=== PATIENT | female | born 1995 | race Hispanic/Latino ===

== ENCOUNTER 2017-04-21 11:38 | Emergency (ER) | payer BC, OTHER ==
[2017-04-21 12:14] VITALS: BMI 26.4
[2017-04-21 12:49] LABS: RBC URINE 2 /hpf (0-3); URINE BACTERIA RARE (<OCC); URINE BILIRUBIN NEGATIVE (NEGATIVE); URINE BLOOD NEGATIVE (NEGATIVE); URINE COLOR STRAW (YELLOW); URINE GLUCOSE (UA) 50 mg/dL (Normal); URINE KETONE NEGATIVE (NEGATIVE); URINE LEUKOCYTE ESTERASE NEG Leu/uL (Negative); URINE PROTEIN NEGATIVE (NEGATIVE); URINE UROBILINOGEN 0.2-1.0 mg/dL (0.2-1.0); WBC URINE < 1 /hpf (0-5)
--- NOTE | 2017-04-21 13:43 | OBHP ---
Datetime: 04/21/2017 13:21 IP Adm Impression: , intrauterine IP Admit Plan: Observation/Evaluation; Discharge home Admit Comment, IP Provider: 21yo g1 edc 08/12 presents with c/o pink colored blood noted when she voi ded. She denies ctxs, srom, or decreased fm. pmhx: denies pshx: lithotripsy for kidney stones; Y_A allergy: sulfs medic: pnv shx: denies etoh o: u/a neg I: 23.6wk P: urine c_s f/u in office in 1wk hydraton reinforced. I: 23.6wk Pelvic Type - PN: Adequate Extremities - PN: Normal Abdomen - PN: Normal Breast - PN: Normal Lungs - PN: Normal Heart - PN: Normal Neurologic - PN: Normal HEENT - PN: Normal General - PN: Normal FHR - Baseline A Provider: 140 Comments, ACOG Physical Exam: SSE: no blood in vault; whitish d/c EGA AdmitDate IP: 23.6 Vital Signs Provider: Reviewed; Within Normal Limits IP Chief Complaint: Vaginal bleeding NICHD Variability Prov Fetus A: Moderate 6-25bpm NICHD Accel Fetus A IP Provider: 15X15 FHR Category Provider Fetus A: Category I NICHD Decel Fetus A IP Provider: None Dilatation, Provider: 0 Effacement, Provider: 0 Station, Provider: -4 Genitourinary Exam: Normal
== END 2017-04-21 13:43 | disposition home or self-care (01) ==
LOC: H.EROB2 11:38
DX: O47.02 False labor before 37 completed weeks of gestation, second trimester (principal); Z3A.23 23 weeks gestation of pregnancy; O26.92 Pregnancy related conditions, unspecified, second trimester; Z87.442 Personal history of urinary calculi

== ENCOUNTER 2017-07-27 14:26 | Inpatient (IN) | payer OTHER ==
[2017-07-27 15:28] VITALS: BMI 28.3
[2017-07-27 17:31] LABS: BASO % 0.2 % (0.0-2.0); EOS # 0.1 K/uL (0.0-0.7); EOS % 0.6 % (0.0-4.0); HEMATOCRIT 39.2 % (34.0-47.0); LYMPH # 1.8 K/uL (1.0-4.3); LYMPH % 13.5 % (20.0-40.0); MEAN CELL VOLUME 95.9 fl (81.0-99.0); MEAN CORPUSCULAR HEMOGLOBIN 31.5 pg (27.0-31.0); MEAN CORPUSCULAR HGB CONC 32.9 g/dL (33.0-37.0); MEAN PLATELET VOLUME 7.2 fl (7.2-11.7); MONO # 0.9 K/uL (0.0-0.8); MONO % 6.9 % (0.0-10.0); NEUT # 10.5 K/uL (1.8-7.0); NEUT % 78.8 % (50.0-75.0); NRBC % 0.1 % (0.0-0.0); RED CELL DISTRIBUTION WIDTH 13.2 % (11.5-14.5); WHITE BLOOD COUNT 13.3 K/uL (4.8-10.8)
--- NOTE | 2017-07-27 17:31 | OBADHP ---
Datetime: 07/27/2017 17:15 IP Chief Complaint Other: oligo Pelvic Type - PN: Adequate Extremities - PN: Normal Membranes, Provider: Intact Pool Provider: Negative Nitrazine Provider: Negative IP Chief Complaint: Other Dilatation, Provider: 0 Effacement, Provider: 0 Station, Provider: -3 IP Adm Impression: Term, intrauterine IP Admit Plan: Admit to unit; Initiate labor induction protocol Datetime: 07/27/2017 16:15 Admit Comment, IP Provider: Obh addendum: Patient seen and examined by me. Agree with above assessment and plan. Clarification of above david ent did take Adderall and first and second trimester of and has been followed by MFM. Impression: Induction for oligohydramnios No evidence of PROM. Plan: Admitted for induction. Patient discussed with Dr. Justin and Dr. Larsen. Induction process and plan discussed with patient indications for induction also discussed with drea dallas. She agrees with the planned procedure. CC: oligohydrominos 22 yo g1 at 37.5 edc 10/6 by first trim US presents from US office due to MONICA 5.3 and eval of susp ected SROM. She denies ctxs, VB or decreased fm. States some scant LOF x 2 days. + FM, no ctx, no VB reported. 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 Saldaña labs: B pos antibody screen negative, HIV, gc/chla/hep B negative, rubella immune, rpr NR US: MONICA 5.3, cephalic presentation, BPP 8/8 today, placenta anterior pmhx: denies pshx: lithotripsy for kidney stones; tonsillectomy allergy: sulfa drugs meds: pnv shx: denies etoh O: see exam, VSS O: cervix closed, no SROM A/P 22 yo g1 at 37.5 edc 10/6; oligohydrominos ( MONICA 5) - nitrazine negative - US: MONICA 5.3, cephalic presentation, BPP 8/8 today, placenta anterior - MFM contacted by Dr Bernard recommend IOL - admit to unit - cont monitor - IOL protocol: cervidil - d/w Dr. Joana Guallpa MD Abdomen - PN: Normal Back - PN: Normal Breast - PN: Not Done Lungs - PN: Normal Heart - PN: Normal Thyroid - PN: Normal Neurologic - PN: Normal HEENT - PN: Not Done General - PN: Normal Presentation-Admit: Vertex FHR - Baseline A Provider: 150 Comments, ACOG Physical Exam: cervix: closed, thick, scant white discharge, no pooling in vaginal va ult, nitrazine negative no pooling with and w/out valalva gbs neg Gestation - Est Wks by US: 37.5 Vital Signs Provider: Reviewed NICHD Variability Prov Fetus A: Moderate 6-25bpm NICHD Accel Fetus A IP Provider: 15X15 FHR Category Provider Fetus A: Category I NICHD Decel Fetus A IP Provider: None Genitourinary Exam: Normal DTRs - PN: Not Done Datetime: 04/21/2017 13:21 EGA AdmitDate IP: 23.6
[2017-07-27] MEDS ORDERED: Penicillin G Potassium 5 MU in Sodium Chloride 0.9% 50 ML IVPB ONE (17:35)
[2017-07-27 20:41] VITALS: O2SAT 99
[2017-07-27] MEDS ORDERED: Nalbuphine 20 mg/ml Inj (1 ml) IVP PRN (22:00)
[2017-07-27] MEDS: Lactated Ringer's 1,000 ML IV SCH (22:20)
[2017-07-28] MEDS: Lactated Ringer's 1,000 ML IV SCH (12:45)
--- NOTE | 2017-07-29 10:28 | OBPN ---
Datetime: 07/29/2017 10:21 IP Progress Impression Other: Oligohydramnios IP Procedures: Sterile Vag Exam IP Progress Plan: Cervical Ripening Membranes, Provider: Intact FHR - Baseline A Provider: 120 IP Progress Note Comment: 22 yo G1 at 37+5 wks for induction for oligohydramnios s/p cervidil, oral miso 50 x [address] cervidil #2 GBS positive, FHT reassuring NICHD Accel Fetus A IP Provider: 15X15 FHR Category Provider Fetus A: Category I NICHD Variability Prov Fetus A: Moderate 6-25bpm Dilatation, Provider: 0 Effacement, Provider: 0 Station, Provider: -3 NICHD Decel Fetus A IP Provider: None Datetime: 07/27/2017 17:15 Pool Provider: Negative Nitrazine Provider: Negative Datetime: 07/27/2017 16:15 Gestation - Est Wks by US: 37.5 Presentation-Admit: Vertex Vital Signs Provider: Reviewed
[2017-07-30] MEDS ORDERED: Oxytocin 30 units/LR 500ML 30 U/500 ML BAG IV ONE ×2 (00:04→10:49)
--- NOTE | 2017-07-30 00:05 | OBPN ---
Datetime: 07/29/2017 23:55 IP Progress Impression Other: Oligohydramnios IP Procedures: Sterile Vag Exam IP Progress Plan: Cervical Ripening Membranes, Provider: Intact FHR - Baseline A Provider: 120 IP Progress Note Comment: 22 yo G1 at 37+5 wks for induction for oligohydramnios s/p cervidil #1, or al miso x 5, cervidil #2 Will start low dose pitocin over night and will proceed w/ a section in the am if she is still not yet in labor Plan discussed w/ pt and her GBS positive, FHT reassuring Vital Signs Provider: Reviewed NICHD Accel Fetus A IP Provider: 15X15 FHR Category Provider Fetus A: Category I NICHD Variability Prov Fetus A: Moderate 6-25bpm Dilatation, Provider: 0 Effacement, Provider: 0 Station, Provider: -3 NICHD Decel Fetus A IP Provider: None
[2017-07-30] MEDS: Lactated Ringer's 1,000 ML IV SCH ×6 (00:06→21:09)
[2017-07-30] MEDS ORDERED: Nalbuphine 20 mg/ml Inj (1 ml) IVP PRN (00:22)
[2017-07-30] MEDS ORDERED: Nalbuphine 20 mg/ml Inj (1 ml) ONE (00:27)
[2017-07-30] MEDS ORDERED: ceFAZolin 1 GM in Sodium Chloride 0.9% 100 ML IVPB ONE (08:15)
--- NOTE | 2017-07-30 08:26 | OBPN ---
Datetime: 07/30/2017 08:21 IP Progress Impression Other: Failed induction IP Informed Consent Obtain: Section Delivery; Risks, Benefits and Alternatives Discussed IP Progress Plan: Deliver- Section Membranes, Provider: Intact FHR - Baseline A Provider: 140 IP Progress Note Comment: 22 yo G1 at 37+6 wks w/ failed induction of labor for oligohydramnios Pt decided against the pitocin last night and is ready to proceed w/ a section Consents signed. All questions answered. NICHD Accel Fetus A IP Provider: 15X15 FHR Category Provider Fetus A: Category I NICHD Variability Prov Fetus A: Moderate 6-25bpm NICHD Decel Fetus A IP Provider: None
[2017-07-30] MEDS ORDERED: ePHEDrine 50 mg/ml Inj ONE (09:50)
[2017-07-30] MEDS ORDERED: Phenylephrine 10 mg/ml Inj ONE (09:50)
[2017-07-30] MEDS ORDERED: Morphine 5 mg/10 ml preservative-free Inj(Duramorph) ONE (09:59)
[2017-07-30] MEDS ORDERED: Midazolam 2 MG/2 ML VIAL ONE (10:50)
[2017-07-30] MEDS ORDERED: Oxytocin 10 Units/ml Inj ONE (11:09)
--- NOTE | 2017-07-30 12:18 | OBDS ---
DELIVERY PERSONNEL Delivery Doctor: Salome Stanford MD Scrub Nurse: Mandie Barreto OBT Superintendent Terminal: Manasa Diggs RN/ Monica Salas RN Anesthesiologist: Issa Heck MD Resident: Dr. Daly PGY1 MATERNAL INFORMATION Delivery Anesthesia: Spinal Medications in Delivery: ivpb ancef 1 gram Provider Comments: Pre-op dx: 22 yo G1 at at 37+6 wks with failed induction of labor for oligohydram nios Post-op dx: Same Procedure: Primary low transverse section Surgeon: Hien Body Bumper: Dr. Bernard, the hospitalist Anesthesia: Spinal Anesthesiologist: Dr. Heck Findings: Viable female infant delivered through clear fluid at 10:49am, Apgars 9 and 9. Wt 7#1.8 , 3245 gms. Small fibroids noted on uterus, nl appearing tubes and ovaries. Complications: None EBL: 700 mL LABOR SUMMARY EDC: 08/14/2017 00:00 No. Babies in Womb: 1 Attempted: No LABOR INFORMATION Cervical Ripening Agents: Cervidil (Annotations: Cervidil removed by Dr. Stanford. ) Oxytocin: N/A Group B Beta Strep: Positive (Annotations: Call received from DR Piotr MD clarified GBS results are p ositive and to be faxed to LD ) Steroids Given: None (Annotations: Data stored by N on behalf of user) MEMBRANES Rupture of Membranes: 07/30/2017 10:49 Length of Rupture (hrs): 0.00 STAGES OF LABOR Stage 3 hrs: 0 Stage 3 min: 1 BABY A INFORMATION Delivery Date/Time: 07/30/2017 10:49 Method of Delivery: Born in Route : Yes : N/A SHOULDER DYSTOCIA BABY A Delivery Date/Time: 07/30/2017 10:49 PRESENTATION/POSITION BABY A Presentation: Cephalic Cephalic Presentation: Vertex Breech Presentation: N/A PLACENTA INFORMATION BABY A Placenta Delivery Time : 07/30/2017 10:50 Placenta Method of Delivery: Manual Removal Placenta Status: Delivered SCORES BABY A Heart Rate 1 min: >100 bpm Resp Effort 1 min: Good Cry Reflex Irritability 1 min: Cough or Sneeze or Pulls Away Muscle Tone 1 min: Active Motion Color 1 min: Body Kenvil, Extremities Blue SCORE 1 MIN: 9 Heart Rate 5 min: >100 bpm Resp Effort 5 min: Good Cry Reflex Irritability 5 min: Cough or Sneeze or Pulls Away Muscle Tone 5 min: Active Motion Color 5 min: Body Kenvil, Extremities Blue SCORE 5 MIN: 9 Heart Rate 10 min: >100 bpm Resp Effort 10 min: Good Cry Reflex Irritability 10 min: Cough or Sneeze or Pulls Away Muscle Tone 10 min: Active Motion Color 10 min: Completely Kenvil SCORE 10 MIN: 10 INFORMATION BABY A Gestational Age at Delivery: 37+6 Gestational Status: Term Infant Condition : Stable Sex: Female IDENTIFICATION/MEDS BABY A ID Band Number: [id number] ID Band Location: Left Leg; Left Arm WEIGHT/LENGTH BABY A Birthweight (gms): 3245 Weight (lb): 7 Infant Weight (oz): 2 Infant Length Inches: 19.00 Length cms: 48.3 CORD INFORMATION BABY A No. Cord Vessels: 3 Nuchal Cord : N/A Nuchal Cord Other: no Cord pH Baby Arterial: no Cord pH Baby Venous: no Cord Blood Taken: Yes Banking/Donate Info: no Infant Suction: Mouth; Nose
[2017-07-30] MEDS ORDERED: Oxycodone/Acetaminophen 5/325 mg Tab PO PRN (14:16)
[2017-07-30] MEDS ORDERED: DiphenhydrAMINE 50 mg/ml Inj IVP PRN ×2 (14:27→16:11)
[2017-07-30] MEDS: Oxycodone/Acetaminophen 5/325 mg Tab PO PRN (21:11)
--- NOTE | 2017-07-30 22:02 | OP ---
PROCEDURE DATE: 07/30/2017 PREOPERATIVE DIAGNOSIS: A 22-year-old G1 at 37 weeks and 6 days with failed induction of labor for oligohydramnios. POSTOPERATIVE DIAGNOSIS: A 22-year-old G1 at 37 weeks and 6 days with failed induction of labor for oligohydramnios. PROCEDURE: Primary low transverse Caesarian section. SURGEON: Jeanette Stanford MD [employer] P[employer]DER CANNING LEADER: Kennedy Bernard MD, the hospitalist. Dr. Bernard is a faculty research assistant participated in the surgery for the entire duration of the case. She helped create exposure. She also helped maintain hemostasis, operated throughout the case on the side that the patient was across from her and assisted in delivery of the by applying fundal pressures. The case could not have been completed without her assistance. TYPE OF ANESTHESIA: Spinal. ANESTHESIA ADMINISTERED BY: Dr. Heck FINDINGS: Viable female delivered through clear fluid at 10:49 a.m., 's were 9 and 9 at 1 and 5 minutes respectively. The weight was 7 pounds and 1.8 ounces or 3245 grams. Small fibroids were noted on the uterus. Normal appearing tubes and ovaries. COMPLICATIONS: None. ESTIMATED BLOOD LOSS: 700 mL DESCRIPTION OF PROCEDURE: The patient was taken to the operating room where a spinal was placed. A Lange was placed in the bladder. She was then prepped and draped in the normal sterile fashion in the dorsal supine position with a leftward tilt. A Lange was placed in the bladder. The spinal was tested and found to be adequate. Pfannenstiel skin incision was then made with scalpel and carried through underlying layer of fascia with Bovie. The fascia was incised in the midline and incision was extended laterally with the Bovie. The inferior aspect of the fascial incision was then grasped with Jhonny clamp and elevated the underlying rectus muscles were dissected off bluntly and with the Bovie. Attention was then turned to the superior aspect of this incision, which is in similar fashion was grasped, tented up with Jhonny clamp, and rectus muscles were dissected off bluntly and with the Bovie. The rectus muscles were then in the midline. The peritoneum was identified and entered digitally. The peritoneal incision was then extended superior and inferiorly with good visualization of the bladder. The bladder blade was then inserted. The vesicouterine peritoneum was identified, grasped with pickups and entered sharply with Metzenbaum. The incision was then extended laterally and the bladder flap was created digitally. The bladder blade was then reinserted and low uterine segment was incised in transverse fashion with the scalp. The uterine incision was then extended digitally with a cephalocaudal direction. The bladder blade was removed. The infant's head delivered atraumatically. The nose and mouth were suctioned with the bulb suction. The cord was clamped and cut. The infant was handed up to the waiting parking lot attendant and cashier. The cord blood was collected. The placenta was then delivered as the uterus was massaged. The uterus was then exteriorized and cleared of all clots and debris with dry sponge curettage. The uterine incision was then repaired with 0 Vicryl in a running locked fashion. A second layer of 0 Monocryl was then placed in an imbricating fashion to reinforce the incision and for excellent hemostasis. The abdomen was then well irrigated. The uterus was returned to the abdomen. The gutters were cleared of all clots. The uterine incision was reexamined and found to be hemostatic. The peritoneum was then closed with 2-0 chromic. The muscle was reapproximated using 0 chromic with a mattress stitch and an interrupted stitch. The fascia was then reapproximated using 0 Vicryl in a running fashion. The space of the subcutaneous fat was then closed with interrupted stitches of 2-0 plain gut. The skin was closed in subcuticular fashion using 4-0 Monocryl. The patient tolerated the procedure well. Sponge, lap, and needle counts were correct. The patient had received 1 g of Ancef prior to the procedure. The patient was taken to recovery room in stable condition. Jeanette Stanford MD cc: JUAN PABLO
[2017-07-31] MEDS: Oxycodone/Acetaminophen 5/325 mg Tab PO PRN ×5 (03:11→21:09)
[2017-07-31 07:27] LABS: HEMATOCRIT 34.4 % (34.0-47.0); MEAN CELL VOLUME 96.1 fl (81.0-99.0); MEAN CORPUSCULAR HEMOGLOBIN 31.8 pg (27.0-31.0); MEAN CORPUSCULAR HGB CONC 33.1 g/dL (33.0-37.0); RED CELL DISTRIBUTION WIDTH 13.4 % (11.5-14.5)
[2017-07-31] MEDS: Prenatal Multivit/Folic Acid/Iron Tab PO SCH (08:10)
[2017-07-31] MEDS ORDERED: Prenatal Multivit/Folic Acid/Iron Tab PO SCH (09:00)
[2017-08-01] MEDS: Oxycodone/Acetaminophen 5/325 mg Tab PO PRN ×6 (01:33→21:25)
[2017-08-01] MEDS: Lactated Ringer's 1,000 ML IV SCH (08:00)
[2017-08-01] MEDS ORDERED: Diphenhydramine 1% CREAM TOP PRN (08:08)
[2017-08-01] MEDS: Prenatal Multivit/Folic Acid/Iron Tab PO SCH (08:22)
[2017-08-01] MEDS ORDERED: Influenza Vaccine 18yr & older 0.5 ML/45 MCG SYR IM ONE (09:00)
--- NOTE | 2017-08-01 12:23 | OBPPN ---
Datetime: 08/01/2017 12:18 PP Pain Prov: Within normal limits PP Nausea Prov: Denies PP Flatus Prov: Yes PP Breasts Prov: Normal PP Heart Prov: Normal PP Lungs Prov: Normal PP Abdomen/Uterus Prov: Normal PP Lochia Prov: Normal PP Vulva/Perineum Prov: Normal PP CVA Tenderness Prov: Normal PP Extremities Prov: Normal PP Comments Phys Exam Prov: Fundus firm under umbilicus Incision clean/dry/intact PP Impression Prov: Normal progression PP Plan Prov: Continue present management PP Progress Note Prov: Patient denies CP, no SOB, no N/V, tolerating Po diet, ambulating/voiding wel l, mild lochia, abdominal pain tolerable with meds, +flatus A/P POD #2 1. Continue current orders 2. Reg diet 3. Percocet/Motrin prn pain 4. Encourage ambulation/ IP PP Procedures: None Vital Signs Provider PP: Reviewed; Within Normal Limits Datetime: 07/31/2017 08:30 PP C/S Incision Prov: Normal PP Progress Prov: Normal
[2017-08-01] MEDS: Simethicone 80 mg Chewtab PO PRN ×2 (16:50→20:35)
[2017-08-02] MEDS: Oxycodone/Acetaminophen 5/325 mg Tab PO PRN ×2 (00:58→06:38)
[2017-08-02] MEDS: Prenatal Multivit/Folic Acid/Iron Tab PO SCH (09:12)
--- NOTE | 2017-08-02 09:22 | OBDCSUM ---
Datetime: 08/02/2017 09:20 Discharged to, Provider: Home Follow up at, Provider: [facility] Disch Instr Activity: Normal activity Disch Instr Diet: Regular Discharge Instructions, Provider: Routine instructions given Discharge Diagnosis, Provider: Term Delivered Follow up in weeks, Provider: 1-2w Disch Referrals: None Contraception discussed, Prov: Yes Disch Activity Restrictions: Minimize stair-climbing; No sexual activity; Nothing in vagina - Interc ourse, tampons, douche Datetime: 04/21/2017 13:26 Follow up at, Provider: [facility] Follow up in weeks, Provider: in 1 week Disch Activity Restrictions: No exercising; No lifting
--- NOTE | 2017-08-02 09:22 | OBPPN ---
Datetime: 08/02/2017 09:19 PP Pain Prov: Within normal limits PP Nausea Prov: Denies PP Flatus Prov: Yes PP BM Prov: No PP Breasts Prov: Normal PP Heart Prov: Normal PP Lungs Prov: Normal PP Abdomen/Uterus Prov: Normal PP Lochia Prov: Normal PP Vulva/Perineum Prov: Normal PP CVA Tenderness Prov: Normal PP Extremities Prov: Normal PP C/S Incision Prov: Normal PP Impression Prov: Normal progression PP Plan Prov: Discharge PP Progress Note Prov: She is ready to go home. No BM H/H A: S/P day 3 PLAN Dulcolax; dischagre home; follow up in 1-2w Vital Signs Provider PP: Reviewed; Within Normal Limits
[2017-08-02 18:27] VITALS: BP 131/73; PULSE 95; RESP 18; TEMP 97.6
== END 2017-08-02 14:15 | disposition home or self-care (01) | DRG 766 ==
LOC: H.EROB2 14:26 → H.EROB 15:16 → H.L&D 16:09 → H.EROB2 16:15 → H.L&D 07-28 08:35 → H.OB/GYN 07-30 15:35
PROVIDERS: ADMIT Obstetrics & Gynecology; ATTEND Obstetrics & Gynecology
PROC: 10D00Z1 Extraction of Products of Conception, Low, Open Approach (ICD-10-PCS; principal; 2017-07-27)
PROC: 4A1HXCZ Monitoring of Products of Conception, Cardiac Rate, External Approach (ICD-10-PCS; 2017-07-27)
DX: O41.03X0 Oligohydramnios, third trimester, not applicable or unspecified (principal); O61.9 Failed induction of labor, unspecified; D25.9 Leiomyoma of uterus, unspecified; Z37.0 Single live birth; O99.824 Streptococcus B carrier state complicating childbirth; O34.13 Maternal care for benign tumor of corpus uteri, third trimester; Z3A.37 37 weeks gestation of pregnancy